=== PATIENT | male | born 1990 | race African-American/Black ===

== ENCOUNTER 2019-03-21 09:09 | Emergency (ER) | payer SELFPAY ==
[~2019-03-21] VITALS: Ht 180.3 cm; Wt 79.0 kg
[2019-03-21] MEDS ORDERED: KETOROLAC 15MG/ML VIAL IV ONE (10:30)
[2019-03-21] MEDS ORDERED: METOCLOPRAMIDE HCL 10MG/2ML VIAL IV ONE (10:30)
[2019-03-21] MEDS ORDERED: SODIUM CHLORIDE 0.9% 1,000 ML IV ONE (10:30)
[2019-03-21 10:39] LABS: BASOPHILS % 0.6 % (0.0-2.0); EOSINOPHILS % 0.1 % (0.0-5.0); HEMATOCRIT. 45.6 % (42.0-52.0); HEMOGLOBIN. 15.3 g/dL (14.0-18.0); MEAN CORPUSCULAR VOLUME 83.5 fL (80.0-94.0); MEAN PLATELET VOLUME 8.9 fl (7.4-10.4); MONOCYTES % 13.9 % (2.0-8.0); NEUTROPHILS % 66.4 % (40.0-76.0); PLATELET 172 x1000/uL (130-400); RED BLOOD CELL COUNT 5.46 mill/uL (4.7-6.1); RED CELL DISTRIBUTION WIDTH 13.5 % (11.6-14.6)
[2019-03-21 10:41] LABS: CHLORIDE 104 mEq/L (98-107)
[2019-03-21 12:30] VITALS: BP 123/85
== END 2019-03-21 12:30 | disposition home or self-care (01) ==
LOC: ER 09:57
DX: B34.9 Viral infection, unspecified (principal); J45.909 Unspecified asthma, uncomplicated
CPT/HCPCS: 36415; 71045; 80053; 85025; 93005; 96374; 96375; 99284; J1885; J2765; J7030